=== PATIENT | male | born 1980 | race Caucasian/White ===

== ENCOUNTER 2019-01-09 16:16 | Emergency (ER) | payer OTHER ==
[~2019-01-09] VITALS: Ht 180.3 cm; Wt 80.0 kg
[2019-01-09 17:18] VITALS: BP 132/83
[2019-01-09 18:24] LABS: HCT (SEDRATE) 45.3 % (39.2-51.8)
[2019-01-09 18:25] LABS: BASOPHILS # (AUTO) 0.01 x10^3/uL (0-0.1); BASOPHILS % (AUTO) 0 % (0-1); EOSINOPHILS # (AUTO) 0.21 x10^3/uL (0-0.4); EOSINOPHILS % (AUTO) 5 % (1-7); LYMPHOCYTES # (AUTO) 0.82 x10^3/uL (1-3.4); LYMPHOCYTES % (AUTO) 19 % (22-44); MD NO; MEAN CORPUSCULAR HEMOGLOBIN 31.4 pg (27.5-34.5); MEAN CORPUSCULAR HGB CONC 33.8 g/dL (33.2-36.2); MEAN CORPUSCULAR VOLUME 92.8 fL (81-97); MEAN PLATELET VOLUME 9.1 fL (7.4-10.4); MONOCYTES # (AUTO) 0.35 x10^3/uL (0.2-0.8); MONOCYTES % (AUTO) 8 % (2-9); NEUTROPHILS # (AUTO) 2.95 x10^3/uL (1.8-6.8); NEUTROPHILS % (AUTO) 68 % (42-75); PLATELET COUNT 126 x10^3/uL (130-400); RED BLOOD COUNT 4.91 x10^6/uL (4.38-5.82); RED CELL DISTRIBUTION WIDTH 12.7 % (9.4-14.8)
[2019-01-09 18:31] LABS: ALBUMIN 3.4 g/dL (3.4-5.0); ANION GAP 4 mmol/L (5-15); CALCIUM 8.4 mg/dL (8.5-10.1); CHLORIDE 109 mmol/L (98-107)
[2019-01-09 18:35] LABS: ALANINE AMINOTRANSFERASE 924 U/L (12-78); ALKALINE PHOSPHATASE 235 U/L (45-117); BILIRUBIN,TOTAL 1.2 mg/dL (0.2-1.0); CREATININE 0.69 mg/dL (0.7-1.3); TOTAL PROTEIN 6.7 g/dL (6.4-8.2)
[2019-01-09] MEDS ORDERED: HYDROcodone/APAP 5/325 TABLET ONE (18:40)
[2019-01-09] MEDS ORDERED: HYDROcodone/APAP 5/325 TABLET PO ONE (19:00)
--- NOTE | 2019-01-09 19:06 | NUR ---
REPORT TO WINSOME FARLEY
--- NOTE | 2019-01-09 19:12 | NUR ---
REPORT FROM KASSIE FARLEY, ASSUME CARE OF PT AT THIS TIME. PT TO US.
--- NOTE | 2019-01-09 20:20 | NUR ---
TO ROOM FOR DISCHARGE, PT AWARE OF RX FOR NAPROSYN, PT STATES "I AINT FUCKING LEAVING UNTIL I GET SOMETHING BETTER". AWARE
== END 2019-01-09 20:55 | disposition home or self-care (01) ==
LOC: ED 20:30
DX: M79.642 Pain in left hand (principal); M79.641 Pain in right hand; R21 Rash and other nonspecific skin eruption; R74.0 Nonspecific elevation of levels of transaminase and lactic acid dehydrogenase [LDH]
CPT/HCPCS: 36415; 76700; 80053; 80074; 85025; 85651; 86308; 99284